=== PATIENT | female | born 1950 | race African-American/Black ===

== ENCOUNTER → 2018-09-15 | Outpatient (CLI) | payer MEDICARE, BC ==
[~2018-09-15] MED LIST: NORCO 325 MG-51 TAB PO; PROBIOTIC FORMU1 CAP PO
== END ==
LOC: MC.RAD 11:27
DX: Z12.31 Encounter for screening mammogram for malignant neoplasm of breast (principal)

== ENCOUNTER → 2021-07-19 | Outpatient (CLI) | payer MEDICARE, BC | LOC: COL.RAD 13:31 | DX: C34.11 Malignant neoplasm of upper lobe, right bronchus or lung (principal); Z98.890 Other specified postprocedural states; Z90.2 Acquired absence of lung [part of] | CPT/HCPCS: Q9967 ==

== ENCOUNTER 2023-11-13 07:41 | Outpatient (CLI) | payer MEDICARE, BC ==
[2023-11-13] VITALS (12 sets, daily range): BP systolic 78–135; BP diastolic 57–76; PULSE 76–95; TEMP 97.5
[~2023-11-13] VITALS: Ht 147.3 cm; Wt 37.9 kg
[2023-11-13] MEDS ORDERED: MIRAPEX 0.0.125 MG/T PO (08:16)
[2023-11-13] MEDS ORDERED: MULTIPLE VITAMI1 CAP PO (08:17)
[2023-11-13] MEDS ORDERED: VTAMINC250TA (08:17)
[2023-11-13] MEDS ORDERED: VITAMIN D 400400 IU PO (08:17)
--- NOTE | 2023-11-13 10:21 | NUR ---
SPECIMEN COLLECTED AT 0922.
--- NOTE | 2023-11-13 11:47 | NUR ---
Discharge instructions given to pt.Pt verbalizes understanding.bandaid to back observed clean,dry,intact.Pt escorted out via wheelchair by this nurse.
== END 2023-11-13 15:40 ==
LOC: COL.RAD 07:41
DX: Z85.118 Personal history of other malignant neoplasm of bronchus and lung (principal)
CPT/HCPCS: 32106